=== PATIENT | female | born 1990 | race Caucasian/White ===

== ENCOUNTER 2018-07-06 12:45 | Inpatient (IN) | payer MEDICARE, OTHER ==
[2018-07-06] MEDS ORDERED: RINGER'S SOLUTION,LACTATED 1,000 ML IV ONE (13:16)
[2018-07-06] MEDS ORDERED: LIDOCAINE HCL 50 ML VIAL PERI PRN (13:16)
[2018-07-06] MEDS ORDERED: OXYTOCIN/DEXTROSE 5%-WATER 30 UNITS/500 ML BAG IV ONE (13:16)
[2018-07-06] MEDS ORDERED: RINGER'S SOLUTION,LACTATED 1,000 ML IV PRN (13:16)
[2018-07-06 13:41] LABS: Cocaine Ur Negative (NEGATIVE); Urine Barbiturate Negative (NEGATIVE); Urine Benzodiazepines Negative (NEGATIVE); Urine Opiates Negative (NEGATIVE); Urine PCP Negative (NEGATIVE); Urine THC Negative (NEGATIVE)
--- NOTE | 2018-07-06 16:27 | HP ---
Chief Complaint - Chief Complaint Date of Service: 07/06/18 Time of Service: 16:19 Chief Complaint: Labor History of Present Illness: The patient has presented to labor and delivery twice in the last 24 hours. She made cervical change from 4cm to 5cm. She reports regular ctx. She denies vb or lof. Fetus is active. Medical History (Last Reviewed 06/30/18 @ 20:34 by Arron Garcia DO) Influenza vaccination declined by patient (Acute) Onset Date: 05/09/18 ADHD (attention deficit hyperactivity disorder) As a child. Stopped medication with . Anemia affecting 02/13/2013, 10/30/2015 Anxiety as a child. Tx'd with Lorazepam and Lexapro, stopped meds with . Asthma as a child. No hospitalizations, no meds since 2008. Bipolar disorder As a child, no current medications. Cervical dysplasia Onset Date: ~2012 LSIL Depression As a child, no current medications. Migraine Obsessive compulsive disorder As a child, no current medications. 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 no current meds, last seizure 2009. Chlamydia Onset Date: ~2011 Gastric ulcer Onset Date: ~2002 Bleeding ulcers History of delivery, currently Onset Date: ~2010 twin with sab on 1 twin at 21wks, second twin born at 35weeks. labor Onset Date: ~2010 Surgical History: Surgical History (Last Reviewed 06/30/18 @ 20:34 by Arron Garcia DO) History of colposcopy Onset Date: ~2012 mild dysplasia 01/16/13, 07/16/13 S/P skin biopsy Onset Date: ~01/2018 Family History: Family History (Last Reviewed 06/30/18 @ 20:34 by Arron Garcia DO) Mother ADHD Hemophilia History of OCD (obsessive compulsive disorder) Schizophrenia Asthma Hypothyroidism Diabetes Bipolar disorder Anxiety Depression Cancer Breast Father COPD (chronic obstructive pulmonary disease) Asthma Cancer Skin Family/Other Cystic fibrosis Sister Cancer Cervical Cancer Endometriosis Social History: Preferred Language Lao Smoking Status Current every day smoker Psych History Hx of Anxiety,Hx of Depression,Hx of Bipolar Disorder (Last Updated 07/06/18 @ 12:53 by Arron Garcia DO) No Social History Section defined Review Of Systems (GEN) - Review of Systems Misc: All systems neg except as marked Immunizations: IMMUNIZATION HX Immunizations Up to Date Yes Allergies/Adverse Reactions: Allergies Allergy/AdvReac Type Severity Reaction Status Date / Time benzoyl peroxide Allergy hives, Verified 07/06/18 15:09 swelling, itching, redness Home Medications: HOME MEDICATIONS Vits96/Iron Fum/Folic [ S] 1 tab PO DAILY 01/23/16 [Last Taken 06/28/18] acetaminophen 500 mg tablet 500 mg PO Q4H PRN 01/16/18 [Last Taken 06/30/18 12:00] Exam - Exam Vital Signs: Vital Signs - Last Taken Temp 36.8 C 07/06/18 13:40 Pulse 91 07/06/18 13:40 Resp 20 07/06/18 13:40 BP 127/72 07/06/18 13:40 Pulse Ox 97 07/06/18 13:40 Constitutional: Present: Alert, Oriented x3, Cooperative, No distress Respiratory: Present: lungs clear, normal breath sounds Cardiovascular/Chest: Present: regular rate, rhythm, no murmur Abdomen: Present: soft, nontender, nondistended Extremity: Present: non-tender, no calf tenderness, pedal edema Skin Exam: Present: normal color, warm/dry, no cyanosis Appearance: Present: appropriate appearance Eye contact: Present: cooperative Thoughts: Present: normal thought pattern Diagnostic Studies: Laboratory Results Urine Opiates Screen Negative (NEGATIVE) 07/06/18 13:20 Barbiturate Screen Negative (NEGATIVE) 07/06/18 13:20 Ur Phencyclidine Scrn Negative (NEGATIVE) 07/06/18 13:20 Urine Amphetamine Negative (NEGATIVE) 07/06/18 13:20 U Benzodiazepines Scrn Negative (NEGATIVE) 07/06/18 13:20 Urine Cocaine Screen Negative (NEGATIVE) 07/06/18 13:20 Urine Marijuana (THC) Negative (NEGATIVE) 07/06/18 13:20 Blood Type A Positive 07/06/18 13:35 Antibody Screen Negative 07/06/18 13:35 Assessment/Plan - Narrative Narrative: 27 yo @ 37w 0d who presents in labor AROM for augmentation of labor GBS negative: prophylaxis not indicated FHT cat 1
[2018-07-06] MEDS ORDERED: BUPIVACAINE HCL/0.9 % NACL/PF 250 ML EP PRN (16:42)
[2018-07-06] MEDS ORDERED: NALOXONE HCL 1 MG/1 ML SYRG IV PRN (16:42)
[2018-07-06] MEDS ORDERED: ONDANSETRON HCL/PF 2 MG/ML VIAL IV PRN (16:42)
[2018-07-06] MEDS ORDERED: fentaNYL CITRATE/PF 50 MCG/ML AMPUL IT SCH (16:45)
--- NOTE | 2018-07-06 16:46 | ANES ---
Anesthesia Pre Procedure Eval Vitals/Labs: Last Vital Signs Temp 36.8 C 07/06/18 13:40 Pulse 91 07/06/18 13:40 Resp 20 07/06/18 13:40 BP 127/72 07/06/18 13:40 Pulse Ox 97 07/06/18 13:40 HOME MEDICATIONS Vits96/Iron Fum/Folic [ S] 1 tab PO DAILY 01/23/16 [Last Taken 06/28/18] acetaminophen 500 mg tablet 500 mg PO Q4H PRN 01/16/18 [Last Taken 06/30/18 12:00] Allergies/Adverse Reactions: Allergies Allergy/AdvReac Type Severity Reaction Status Date / Time benzoyl peroxide Allergy hives, Verified 07/06/18 15:09 swelling, itching, redness - Planned Procedure Planned Procedure: ACTIVE LABOR Medication List Reviewed:: Yes Allergies Verified: Yes Medical History (Last Reviewed 07/06/18 @ 16:44 by Les Petit CRNA) Influenza vaccination declined by patient (Acute) Onset Date: 05/09/18 ADHD (attention deficit hyperactivity disorder) As a child. Stopped medication with . Anemia affecting 02/13/2013, 10/30/2015 Anxiety as a child. Tx'd with Lorazepam and Lexapro, stopped meds with . Asthma as a child. No hospitalizations, no meds since 2008. Bipolar disorder As a child, no current medications. Cervical dysplasia Onset Date: ~2012 LSIL Depression As a child, no current medications. Migraine Obsessive compulsive disorder As a child, no current medications. 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 no current meds, last seizure 2009. Chlamydia Onset Date: ~2011 Gastric ulcer Onset Date: ~2002 Bleeding ulcers History of delivery, currently Onset Date: ~2010 twin with sab on 1 twin at 21wks, second twin born at 35weeks. labor Onset Date: ~2010 Surgical History (Last Reviewed 07/06/18 @ 16:44 by Les Petit CRNA) History of colposcopy Onset Date: ~2012 mild dysplasia 01/16/13, 07/16/13 S/P skin biopsy Onset Date: ~01/2018 Family History (Last Reviewed 07/06/18 @ 16:44 by Les Petit CRNA) Mother ADHD Hemophilia History of OCD (obsessive compulsive disorder) Schizophrenia Asthma Hypothyroidism Diabetes Bipolar disorder Anxiety Depression Cancer Breast Father COPD (chronic obstructive pulmonary disease) Asthma Cancer Skin Family/Other Cystic fibrosis Sister Cancer Cervical Cancer Endometriosis - Family Anesthesia History Family History:: no untoward family reactions to anesthesia, no familial bleeding tendencies, no family history of clotting disorders, no family history of premature - Airway/Neck/Teeth Within Normal Limits:: Yes Teeth Condition: intact Mallampatti Score: 2 Thyromental (T-M) distance: > 6 cm Mandibulo Hyoid distance: > 3 cm - Respiratory Respiratory Physical: lungs clear Discussed smoking cessation including day of surgery: No - Cardiovascular Tolerate Activity: Fair Heart Sounds: S1 & S2, Regular - Anesthesia Assessment and Plan ASA Class: PS, II, E Anesthesia Type Plan: Epidural - CSE for labor analgesia
--- NOTE | 2018-07-06 17:09 | ANES ---
Post Anesthesia Discharge - Transfer of Care Transfer of Care handoff given to nurse: Yes - Discharge from PACU Discharge from PACU when meets criteria: Yes - Comfortable post CSE
--- NOTE | 2018-07-06 17:10 | ANES ---
Anesthesia Procedure Note Procedure Note: ANESTHESIA PROCEDURE NOTE Date of Procedure: 07/06/2018 Time of procedure: 1645. Performed by: Les Petit CRNA, MSN Airplane Captain: Anette Joshua RN. Preprocedure diagnosis: Active labor, labor pain. Post procedure diagnosis: Same. Procedure:Epidural for labor analgesia L4 5. Indications: Labor pain. Findings: See below. Details of the procedure: The patient was placed on the side of the bed in sitting positionand prepped with DuraPrep then draped in a sterile fashion. Lidocaine 1% was infiltrated to the skin and subcutaneous tissues at the level of the L4 5 interspace. An 18-gauge Touhy needle was used to approach the epidural space with loss of resistance technique. Once loss of resistance was achieved a 27-gauge spinal needle was passed through the epidural needle and CSF was contacted. After CSF returned, 20 mcg of fentanyl was injected in the spinal needle was removed the epidural catheter was then threaded approximately 4 cm in the epidural needle was removed. The catheter was taped in place and after careful aspiration 3 mL of 1.5% lidocaine with 1-200,000 epinephrine was injected without change in maternal heart rate or sensorium. . EBL: Minimal. Fluids: N/A. Specimen: N/A. Post procedure condition: The patient tolerated the procedure well with good rel ief. No complications were noted. Thank you for this consultation. Les Petit CRNA, MSN
--- NOTE | 2018-07-06 17:19 | ANES ---
Post Anesthesia Assessment - Vital Signs Vitals: Last Vital Signs Temp 36.8 C 07/06/18 13:40 Pulse 91 07/06/18 13:40 Resp 20 07/06/18 13:40 BP 127/72 07/06/18 13:40 Pulse Ox 97 07/06/18 13:40 Airway Patency: Normal - Mental Status Level Of Consciousness: Awake, Alert - Pain Level Pain Score: 0 - N/V Assessment Nausea/Vomiting Presence: None Dehydration:: No
[2018-07-07] MEDS ORDERED: ceFAZolin SODIUM/DEXTROSE,ISO 2 GM/50 ML BAG IV ONE (02:28)
[2018-07-07] MEDS ORDERED: OXYTOCIN 20 UNITS in RINGER'S SOLUTION,LACTATED 1,000 ML IV ONE ×2 (02:28→03:42)
--- NOTE | 2018-07-07 02:36 | PN ---
Progess Note - Interim Date: 07/07/18 Time: 02:33 Narrative: 07/07/18 02:33 Called by RN that patient was complete. When I started pushing with the patient it appeared that the buttock was presenting. Digital examination was also consistent with the buttock presenting. Bedside US confirmed breech presentation. Proceed with emergent delivery due to breech presentation and complete dilation. The patient desires a sterilization and consent has been signed. Proceed with bilateral salpingectomy. All risks, benefits, and alternatives of the procedure were explained to the patient and the patient consents to the procedure.
[2018-07-07] MEDS ORDERED: SENNOSIDES 8.6 MG TABLET PO PRN (03:42)
[2018-07-07] MEDS ORDERED: ONDANSETRON HCL/PF 2 MG/ML VIAL IV PRN (03:42)
[2018-07-07] MEDS ORDERED: oxyCODONE HCL/ACETAMINOPHEN 1 TAB TABLET PO PRN (03:42)
[2018-07-07] MEDS ORDERED: RINGER'S SOLUTION,LACTATED 1,000 ML IV ONE (03:42)
[2018-07-07] MEDS ORDERED: diphenhydrAMINE HCL 25 MG CAPSULE PO PRN (03:42)
[2018-07-07] MEDS ORDERED: KETOROLAC TROMETHAMINE 30 MG/ML VIAL IV PRN (03:42)
[2018-07-07] MEDS ORDERED: BISACODYL 10 MG SUPP.RECT RC PRN (03:42)
[2018-07-07] MEDS ORDERED: SIMETHICONE 80 MG TAB.CHEW PO PRN (03:42)
--- NOTE | 2018-07-07 04:01 | OR ---
Operative Report - Dictated Report Narrative: Date of delivery: 07/07/2018 Time of delivery: 315 Gender: female weight: 2684 grams APGARS 9/9 Preoperative diagnosis: complete dilation, complete breech presentation, desires sterilization Postoperative diagnosis: same Procedure: primary delivery, bilateral salpingectomy Surgeon: Dr. Chavez Anesthesia: epidural Anesthesiologist: Stew Burton CRNA Indications for the procedure: The patient is a 27 yo @ 37w 1d who presented to labor and delivery in labor. She progressed to complete dilation after AROM and low dose pitocin administration. On admission to labor and delivery the fetus was vertex. Fetus was breech at complete dilation. All risks, benefits, and alternatives of the procedure were explained to the patient and the patient consented to the procedure. Description of the procedure: The patient was taken to the operating room where epidural anesthesia was found to be adequate. She was then prepped and draped in the supine position in the standard surgical fashion. A Pfannestiel skin incision was made. The incision was carried through the subcutaneous tissue. The fascia was incised in the midline. The fascia was off the underlying rectus mucles. The rectus muscles were in the midline. The peritoneum was entered bluntly. A large Warren retractor was placed. The lower uterine segment was incised in a low transverse fashion. The uterine incision was extended bluntly. The buttock was delivered first. The rest of the infant was delivered atraumatically. The cord was clamped and cut immediately and the was handed off to the attending pediatric staff. The uterus was cleared of all clots and debris. The uterine incision was closed with 0-vicryl in a running locking fashion. The right fallopian tube was identified by following it to the fimbriated end. The right fallopian tube was cut along the mesosalpinx all the way to the cornual region using the Ligasure device. The same procedure was repeated on the left. The uterine incision was reinspected and found to be hemostatic. The fascia was closed with 1-0 vicryl in a running fashion. The skin was closed with 3-0 monocryl on a Anibal needle. Dermabond was placed over the incision. EBL: 600 mL Complications: none Specimens: fallopian tubes
--- NOTE | 2018-07-07 04:25 | ANES ---
Post Anesthesia Discharge - Transfer of Care Transfer of Care handoff given to nurse: Yes - Discharge from PACU Discharge from PACU when meets criteria: Yes
--- NOTE | 2018-07-07 04:25 | ANES ---
Anesthesia Pre Procedure Eval Vitals/Labs: Last Vital Signs Temp 37.7 C 07/07/18 03:55 Pulse 106 H 07/07/18 04:19 Resp 16 07/07/18 04:19 BP 130/65 07/07/18 04:19 Pulse Ox 99 07/07/18 04:19 HOME MEDICATIONS Vits96/Iron Fum/Folic [ S] 1 tab PO DAILY 01/23/16 [Last Taken 06/28/18] acetaminophen 500 mg tablet 500 mg PO Q4H PRN 01/16/18 [Last Taken 06/30/18 12:00] Allergies/Adverse Reactions: Allergies Allergy/AdvReac Type Severity Reaction Status Date / Time benzoyl peroxide Allergy hives, Verified 07/06/18 15:09 swelling, itching, redness - Planned Procedure Planned Procedure: ACTIVE LABOR Medication List Reviewed:: Yes Allergies Verified: Yes Medical History (Last Reviewed 07/07/18 @ 04:24 by Krunal Burton CRNA) Influenza vaccination declined by patient (Acute) Onset Date: 05/09/18 ADHD (attention deficit hyperactivity disorder) As a child. Stopped medication with . Anemia affecting 02/13/2013, 10/30/2015 Anxiety as a child. Tx'd with Lorazepam and Lexapro, stopped meds with . Asthma as a child. No hospitalizations, no meds since 2008. Bipolar disorder As a child, no current medications. Cervical dysplasia Onset Date: ~2012 LSIL Depression As a child, no current medications. Migraine Obsessive compulsive disorder As a child, no current medications. 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 no current meds, last seizure 2009. Chlamydia Onset Date: ~2011 Gastric ulcer Onset Date: ~2002 Bleeding ulcers History of delivery, currently Onset Date: ~2010 twin with sab on 1 twin at 21wks, second twin born at 35weeks. labor Onset Date: ~2010 Surgical History (Last Reviewed 07/07/18 @ 04:24 by Krunal Burton CRNA) History of colposcopy Onset Date: ~2012 mild dysplasia 01/16/13, 07/16/13 S/P skin biopsy Onset Date: ~01/2018 Family History (Last Reviewed 07/07/18 @ 04:24 by Krunal Burton CRNA) Mother ADHD Hemophilia History of OCD (obsessive compulsive disorder) Schizophrenia Asthma Hypothyroidism Diabetes Bipolar disorder Anxiety Depression Cancer Breast Father COPD (chronic obstructive pulmonary disease) Asthma Cancer Skin Family/Other Cystic fibrosis Sister Cancer Cervical Cancer Endometriosis - Family Anesthesia History Family History:: no untoward family reactions to anesthesia - Airway/Neck/Teeth Within Normal Limits:: Yes Teeth Condition: intact Neck Exam: full range of motion Mallampatti Score: 2 Thyromental (T-M) distance: > 6 cm Mandibulo Hyoid distance: > 3 cm - Respiratory Respiratory Physical: lungs clear Smoking Status: Current every day smoker Discussed smoking cessation including day of surgery: Yes Sleep Apnea currently treated: No Sleep Apnea by current assessment: No - Cardiovascular Tolerate Activity: Good Heart Sounds: S1 & S2, Regular - Anesthesia Assessment and Plan ASA Class: PS, II, E Anesthesia Type Plan: Epidural - Bilat TAP block for postop analgesia
--- NOTE | 2018-07-07 04:25 | ANES ---
Post Anesthesia Assessment - Vital Signs Vitals: Last Vital Signs Temp 37.7 C 07/07/18 03:55 Pulse 106 H 07/07/18 04:19 Resp 16 07/07/18 04:19 BP 130/65 07/07/18 04:19 Pulse Ox 99 07/07/18 04:19 Airway Patency: Normal - Mental Status Level Of Consciousness: Awake - Pain Level Pain Score: 0 - N/V Assessment Nausea/Vomiting Presence: None Dehydration:: No
--- NOTE | 2018-07-07 04:29 | ANES ---
Anesthesia Procedure Note Procedure Note: ANESTHESIA PROCEDURE NOTE Date of procedure:[]. 07/07/2018 Time of procedure:[]. 04 00 Performed by: Stew Burton CRNA Inspector Precision: [] Gloria Dunlap RN . Preprocedure diagnosis: []. Status post section. Desire for postoperative analgesia. Post procedure diagnosis: Same. Procedure:[] Ultrasound-guided bilateral tap block Indications: []. Postoperative analgesia Findings: [] Patient placed in the supine position in the PACU. Patient's right abdominal wall was prepped with ChloraPrep. Ultrasound was utilized to identify fascial layer between internal oblique and trans-abdominus muscles. A 20-gauge 4 inch regional block needle was advanced under ultrasound guidance until tip of needle was positioned just posterior to fascial layer. 15 mL of 0.25% Marcaine with epinephrine 1-200,000 was injected with adequate spread of local anesthesia noted. Procedure was then repeated on patient's left side. EBL: Minimal. Fluids: N/A. Specimen: N/A. Post procedure condition: The patient tolerated the procedure well. No complications were noted. Thank you for this consultation Stew Burton CRNA
[2018-07-07] MEDS: oxyCODONE HCL/ACETAMINOPHEN 1 TAB TABLET PO PRN ×6 (04:47→20:46)
[2018-07-07] MEDS: IBUPROFEN 800 MG TABLET PO PRN ×3 (04:47→17:19)
[2018-07-07] MEDS: DOCUSATE SODIUM 100 MG CAPSULE PO SCH ×2 (08:59→21:26)
[2018-07-08] MEDS: oxyCODONE HCL/ACETAMINOPHEN 1 TAB TABLET PO PRN ×6 (00:04→19:12)
[2018-07-08] MEDS: IBUPROFEN 800 MG TABLET PO PRN ×4 (00:04→19:11)
[2018-07-08] MEDS: DOCUSATE SODIUM 100 MG CAPSULE PO SCH ×3 (07:01→21:21)
--- NOTE | 2018-07-08 11:13 | PN ---
Subjective - Date and Time Seen Date: 07/08/18 Time: 11:04 Subjective Narrative: Pt without complaints Objective Objective Narrative: See vital signs - Review of Systems Generalized/Overall Review: Reports: No Symptoms Reported Misc: All systems neg except as marked - Vitals Vitals: Last Vital Signs Temp 36.3 C 07/08/18 07:00 Pulse 77 07/08/18 07:00 Resp 20 07/08/18 07:00 BP 121/61 07/08/18 07:00 Pulse Ox 99 07/08/18 07:00 - Exam Constitutional: Present: Alert, Oriented x3, Cooperative, No distress Abdomen: Present: soft, nontender, nondistended - incision c/d/i Extremity: Present: non-tender, no calf tenderness Skin Exam: Present: normal color, warm/dry, no cyanosis Appearance: Present: appropriate appearance Eye contact: Present: cooperative Thoughts: Present: normal thought pattern Cauti Physician Documentation - Urinary Catheter Management Urethral (Pedro) Urethral Indwelling: No Date of Insertion: 07/07/18 Time of Insertion: 02:30 Date of Removal: 07/07/18 Time of Removal: 15:00 Assessment/Plan Plan Narrative: POD 1 s/p delivery Doing well Discharge POD 3
[2018-07-08] MEDS ORDERED: MAGNESIUM OXIDE 400 MG TABLET PO SCH (16:30)
[2018-07-09] MEDS: oxyCODONE HCL/ACETAMINOPHEN 1 TAB TABLET PO PRN ×5 (00:37→23:23)
[2018-07-09] MEDS: IBUPROFEN 800 MG TABLET PO PRN ×3 (01:08→18:31)
[2018-07-09] MEDS: DOCUSATE SODIUM 100 MG CAPSULE PO SCH ×2 (09:09→23:24)
--- NOTE | 2018-07-09 10:48 | PN ---
Subjective - Date and Time Seen Date: 07/09/18 Time: 10:47 Subjective Narrative: Pt without complaints Objective Objective Narrative: See vital signs - Review of Systems Generalized/Overall Review: Reports: No Symptoms Reported Misc: All systems neg except as marked - Vitals Vitals: Last Vital Signs Temp 36.7 C 07/09/18 09:15 Pulse 105 H 07/09/18 09:15 Resp 18 07/09/18 09:15 BP 118/60 07/09/18 09:15 Pulse Ox 97 07/09/18 09:15 - Exam Constitutional: Present: Alert, Oriented x3, Cooperative, No distress Abdomen: Present: soft, nontender, nondistended - incision c/d/i Extremity: Present: non-tender, no calf tenderness Skin Exam: Present: normal color, warm/dry, no cyanosis Appearance: Present: appropriate appearance Eye contact: Present: cooperative Thoughts: Present: normal thought pattern Cauti Physician Documentation - Urinary Catheter Management Urethral (Pedro) Urethral Indwelling: No Date of Insertion: 07/07/18 Time of Insertion: 02:30 Date of Removal: 07/07/18 Time of Removal: 15:00 Assessment/Plan Plan Narrative: POD 2 s/p delivery Doing well Discharge tomorrow - Problems/Diagnosis (1) Status post primary low transverse section Problem: Acute (2) Status post primary low transverse section Problem: Acute (3) Encounter for tubal ligation Problem: Acute (4) Encounter for tubal ligation Problem: Acute
[2018-07-10] MEDS: IBUPROFEN 800 MG TABLET PO PRN ×2 (00:14→07:50)
[2018-07-10] MEDS: oxyCODONE HCL/ACETAMINOPHEN 1 TAB TABLET PO PRN ×2 (04:41→07:50)
--- NOTE | 2018-07-10 07:39 | PN ---
Subjective - Date and Time Seen Date: 07/10/18 Time: 07:38 Subjective Narrative: Pt without complaints Objective Objective Narrative: See vital signs - Review of Systems Generalized/Overall Review: Reports: No Symptoms Reported Misc: All systems neg except as marked - Vitals Vitals: Last Vital Signs Temp 36.9 C 07/10/18 00:42 Pulse 115 H 07/10/18 00:42 Resp 16 07/10/18 00:42 BP 139/77 07/10/18 00:42 Pulse Ox 99 07/09/18 18:27 - Exam Constitutional: Present: Alert, Oriented x3, Cooperative, No distress Abdomen: Present: soft, nontender, nondistended - incision c/d/i Extremity: Present: non-tender, no calf tenderness Skin Exam: Present: normal color, warm/dry, no cyanosis Appearance: Present: appropriate appearance Eye contact: Present: cooperative Thoughts: Present: normal thought pattern Cauti Physician Documentation - Urinary Catheter Management Urethral (Pedro) Urethral Indwelling: No Date of Insertion: 07/07/18 Time of Insertion: 02:30 Date of Removal: 07/07/18 Time of Removal: 15:00 Assessment/Plan Plan Narrative: POD 3 s/p delivery Doing well Discharge today - Problems/Diagnosis (1) Status post primary low transverse section Problem: Acute (2) Status post primary low transverse section Problem: Acute (3) Encounter for tubal ligation Problem: Acute (4) Encounter for tubal ligation Problem: Acute
[2018-07-10] MEDS: DOCUSATE SODIUM 100 MG CAPSULE PO SCH (07:50)
[2018-07-10 08:01] VITALS: BP 131/60
== END 2018-07-10 12:30 | disposition home or self-care (01) | DRG 785 ==
LOC: OB 12:45
PROVIDERS: ADMIT Obstetrics & Gynecology; ATTEND Obstetrics & Gynecology
CPT/HCPCS: 59025; 80307; 86850; 86900; 88302